=== PATIENT | female | born 1955 | race Caucasian/White ===

== ENCOUNTER → 2020-08-22 15:10 | Outpatient (CLI) | payer MEDICARE, SELFPAY ==
--- NOTE | 2020-08-22 15:12 | MM_ITS ---
PROCEDURE: MM DIG SCREENING MAMM BI W/CAD Digital Breast Tomosynthesis Included CLINICAL INDICATION: SCREENING There is a history of breast cancer patient's mother. There has been a previous biopsy left breast for benign disease. COMPARISON: Previous mammograms more than 10 years ago and not available for review TECHNIQUE: Standard CC and MLO images and 3D Tomosynthesis was obtained. R2 CAD reviewed. FINDINGS: Mild to moderate fibroglandular densities are seen in the central portions of both breasts. There is a biopsy clip left breast there are 2 benign-appearing nodular densities right breast with benign features but since there are no previous studies for comparison recommend the patient return for ultrasound examination of the areas marked on the image. There are no suspicious microcalcifications. IMPRESSION: Fibrofatty parenchyma with benign-appearing nodular densities right breast BI-RAD Category: 0 Need Additional Imaging Evaluation FOLLOW-UP: IMM Immediate Follow-up Recommended (A letter has been sent to the patient regarding results of the study.) Dictated by: Dr. Luke Hutchinson MD 08/26/2020 12:08 Dr. Luke Hutchinson MD in [place] 08/26/2020 12:08
== END ==
PROVIDERS: PCP Family Medicine; Visit Provider Family Medicine
DX: Z12.31 Encounter for screening mammogram for malignant neoplasm of breast (principal)
CPT/HCPCS: 77063; 77067

== ENCOUNTER → 2020-09-02 10:36 | Outpatient (CLI) | payer MEDICARE, SELFPAY ==
--- NOTE | 2020-09-02 10:40 | US_ITS ---
PROCEDURE: US BREAST LT COMPLETE CLINICAL INDICATION: ABN MAMM COMPARISON: MG MM DIG SCREENING MAMM BI W/CAD from 08/22/2020 FINDINGS: At 12 o'clock near the nipple there is a common shaped mm hypoechoic area which may be due to small cyst. At 1 o'clock there is a four mm cyst. At 9 o'clock there is a 4 mm cyst near the nipple and a 4 mm cyst out ir aspect. Small nodes are present in the axilla. IMPRESSION: Right breast cysts. These may correspond to the mammographic abnormalities. BI-RADS category 3 probably benign. Recommend right sided six-month and sonographic follow-up Dictated by: Arthur Beckman MD 09/19/2020 17:44 Arthur Beckman MD in [place] 09/19/2020 17:44
== END ==
PROVIDERS: PCP Family Medicine; Visit Provider Nurse Practitioner Family
DX: R92.8 Other abnormal and inconclusive findings on diagnostic imaging of breast (principal)
CPT/HCPCS: 76641

== ENCOUNTER → 2020-12-05 09:21 | Outpatient (CLI) | payer MEDICARE, SELFPAY ==
--- NOTE | 2020-12-05 09:27 | MR_ITS ---
PROCEDURE: MR SHOULDER RT WO CON CLINICAL INDICATION: CHRONIC OVERUSE OF RT SHOULDER WITH LIMITED ROM COMPARISON: No exams were available for comparison TECHNIQUE: Routine multiplanar multi echo sequences are performed without gadolinium enhancement. FINDINGS: Hypertrophic changes are present at the acromioclavicular joint. There is subacromial stenosis with the subacromial space measuring 5 mm. There is thickening of the supraspinatus tendon with focal increased T2 signal involving the supraspinatus tendon distally suggesting a partial tear. No evidence of complete or full-thickness tear. There is also tendinopathy/tendinosis of the infraspinatus tendon. There is impingement upon the supraspinatus and infraspinatus tendon from the acromioclavicular hypertrophy. The subscapularis tendon and teres minor tendons are unremarkable. The bicipital tendon is in place. No evidence of labral tear. Small amount fluid is present in the bicipital tendon sheath suggesting tenosynovitis. Osteoarthritic changes are present at the glenohumeral joint. There is a slightly high-riding humeral head. There is slight increased T2 signal involving the humeral head at the greater tuberosity suggesting some underlying bone marrow edema. IMPRESSION: Acromioclavicular arthropathy with subacromial stenosis with impingement upon the supraspinatus and infraspinatus tendons with tendinopathy/tendinosis and suspected partial tear of the distal aspect of the supraspinatus tendon. Osteoarthritic change of the acromioclavicular joint and glenohumeral joint Tenosynovitis of the bicipital tendon Dictated by: Arthur Beckman MD 12/06/2020 13:14 Arthur Beckman MD in [place] 12/06/2020 13:14
== END ==
PROVIDERS: PCP Family Medicine; Visit Provider Family Medicine
DX: M75.81 Other shoulder lesions, right shoulder (principal); M77.8 Other enthesopathies, not elsewhere classified
CPT/HCPCS: 73221

== ENCOUNTER → 2020-12-30 10:22 | Outpatient (CLI) | payer MEDICARE, SELFPAY ==
--- NOTE | 2020-12-30 10:26 | XR_ITS ---
PROCEDURE: XR SHOULDER RT MIN 2V CLINICAL INDICATION: RT shoulder Pain with limited range of motion COMPARISON: MR MR SHOULDER RT WO CON from 12/05/2020 FINDINGS: No fracture or dislocation. No lytic or blastic change. There is normal mineralization. Osteoarthritic changes are present at the glenohumeral joint with moderate to severe subacromial stenosis. There is a slightly high-riding humeral head. Other findings:None. IMPRESSION: Osteoarthritic change with subacromial stenosis Dictated by: Arthur Beckman MD 12/30/2020 12:07 Arthur Beckman MD in [place] 12/30/2020 12:07
== END ==
PROVIDERS: PCP Family Medicine; Visit Provider Orthopaedic Surgery
DX: M25.511 Pain in right shoulder (principal)
CPT/HCPCS: 73030

== ENCOUNTER → 2021-05-15 12:38 | Outpatient (CLI) | payer MEDICARE, SELFPAY ==
--- NOTE | 2021-05-15 12:47 | MM_ITS ---
PROCEDURE: MM DIG MAMM DX UNILAT RT CAD Digital Breast Tomosynthesis Included CLINICAL INDICATION: ABN MAMM Follow-up abnormal mammogram COMPARISON: MG MM DIG SCREENING MAMM BI W/CAD from 08/22/2020 US US BREAST LT COMPLETE from 09/02/2020 MR MR SHOULDER RT WO CON from 12/05/2020 TECHNIQUE: Standard images performed with spot compression views and 3D tomosynthesis. FINDINGS: Average fibroglandular tissue. No malignant appearing mass or malignant-appearing microcalcification. Previously noted nodular densities which were deemed to represent cysts on the previous study are once again noted and not significantly changed. A new area of asymmetry is present in the superior aspect of the right breast and there is a new nodular opacity in the medial aspect of the right breast seen on the tomogram images measuring 4 mm. Ultrasound of the right breast recommended. IMPRESSION: At least 2 new nodular opacities in the right breast. Recommend ultrasound for further evaluation. BI-RAD Category: 0 Need Additional Imaging Evaluation FOLLOW-UP: IMM Immediate Follow-up Recommended (A letter has been sent to the patient regarding results of the study.) Dictated by: Arthur Beckman MD 05/17/2021 10:18 Arthur Beckman MD in [place] 05/17/2021 10:18
== END ==
PROVIDERS: PCP Family Medicine; Visit Provider Family Medicine
DX: R92.8 Other abnormal and inconclusive findings on diagnostic imaging of breast (principal)
CPT/HCPCS: 77061; 77065; G0279

== ENCOUNTER → 2021-05-19 14:57 | Outpatient (CLI) | payer MEDICARE, SELFPAY ==
--- NOTE | 2021-05-19 15:02 | US_ITS ---
PROCEDURE: US BREAST RT COMPLETE CLINICAL INDICATION: R92.8 COMPARISON: US US BREAST LT COMPLETE from 09/02/2020 MG MM DIG MAMM DX UNILAT RT CAD from 05/15/2021 FINDINGS: Focal anechoic lesion is noted in the right breast at 9 o'clock position measuring approximately 0.4 centimeters. Second anechoic lesion noted is at 1 o'clock position, measuring 0.3 centimeters. No suspicious masses noted. Right axillary lymph node measuring up to 3 centimeters noted, demonstrate central fatty hilum and normal morphology. IMPRESSION: Findings are suggestive of cysts in the right breast. Probably benign finding. BI-RADS category 3, probably benign finding. Recommendation: Short-term follow-up in 6 months is recommended. Dictated by: Lupe Bryant 05/20/2021 12:56 Lupe Bryant in [place] 05/20/2021 12:56
== END ==
PROVIDERS: PCP Family Medicine; Visit Provider Family Medicine
DX: R92.8 Other abnormal and inconclusive findings on diagnostic imaging of breast (principal)
CPT/HCPCS: 76641

== ENCOUNTER → 2022-08-19 08:55 | Outpatient (CLI) | payer MEDICARE, SELFPAY ==
[2022-08-19 20:32] LABS: Alanine Aminotransferase 29 U/L (12-78); Albumin Level 4.2 g/dl (3.5-5.0); Albumin/Globulin Ratio 1.5 (1.1-1.8); Alkaline Phosphatase 87 U/L (38-126); Anion Gap 14.3 mEq/L (5-15); Aspartate Amino Transferase 32 U/L (14-36); Bilirubin,Total 0.5 mg/dl (0.2-1.3); Blood Urea Nitrogen 19 mg/dl (7-17); Calcium 9.2 mg/dl (8.4-10.2); Carbon Dioxide 28 mmol/L (22.0-30.0); Chloride 102 mmol/L (98-107); Chol/HDL Ratio 3.8 (1-3.5); Cholesterol 214 mg/dl (140-200); Estimated Glomerular Filt Rate 62 ml/min (>60); GFR (African American) 76 ML/MIN (>60); Globulin 2.8 g/dL (1.3-3.2); Glucose 111 mg/dl (74-100); HDL Cholesterol 56 mg/dl (40-60); Potassium 4.3 mmoL/L (3.5-5.1); Sodium 140 mmol/L (136-145); Triglycerides 64 mg/dl (30-150); VLDL Cholesterol 13 mg/dL (0-40)
[2022-08-19 20:41] LABS: Direct LDL Cholesterol 127.15 mg/dL (100-129)
[2022-08-19 20:43] LABS: Basophils # 0.1 K/mm3 (0-0.2); Basophils % 1.1 % (0.1-2.0); Eosinophils # 0.1 K/mm3 (0.0-0.4); Eosinophils % 1.4 % (0.1-12.0); Hemoglobin 14.3 g/dL (12.2-16.2); Lymphocytes # 1.6 K/mm3 (0.7-4.5); Lymphocytes % 27.5 % (10-50); Mean Corpuscular HGB Conc 31.9 g/dL (31.8-35.4); Mean Corpuscular Hemoglobin 30.6 pg (27.0-31.2); Mean Corpuscular Volume 95.8 fl (81-99); Monocytes # 0.3 K/mm3 (0.1-1.0); Monocytes % 5.7 % (1.7-9.3); Neutrophils # 3.8 K/mm3 (1.8-7.8); Neutrophils % 64.3 % (37.0-80.0); Platelet Count 256 K/mm3 (142-424); Red Blood Count 4.69 M/mm3 (4.20-5.40); Red Cell Distribution Width 14.3 % (11.5-17.5); White Blood Count 5.9 K/mm3 (4.8-10.8)
== END ==
PROVIDERS: PCP Family Medicine; Visit Provider Family Medicine
DX: K58.9 Irritable bowel syndrome, unspecified (principal); L03.211 Cellulitis of face; E78.5 Hyperlipidemia, unspecified
CPT/HCPCS: 80053; 80061; 85025

== ENCOUNTER → 2022-11-04 15:13 | Outpatient (CLI) | payer MEDICARE, SELFPAY ==
--- NOTE | 2022-11-04 15:13 | MM_ITS ---
PROCEDURE INFORMATION: Exam: MG Bilateral Screening 3D Mammography Exam date and time: 11/04/2022 3:12 PM Age: 67 years old Clinical indication: Screening mammogram. TECHNIQUE: Imaging protocol: Bilateral Screening tomosynthesis and 2D mammography including computer-aided detection (CAD) when performed. COMPARISON: 1. MG MM DIG MAMM DX UNILAT RT CAD 05/15/2021 1:41 PM 2. MG MM DIG SCREENING MAMM BI W/CAD 08/22/2020 3:16 PM 3. US BREAST RT COMPLETE 05/19/2021 3:17 PM 4. US BREAST LT COMPLETE 09/02/2020 11:28 AM FINDINGS: MAMMOGRAPHY: Breast composition: There are scattered areas of fibroglandular density. Mass: 0.8 cm mass within the upper outer posterior right breast (about 7 cm from the nipple) should be further assessed ultrasound. Architectural distortion: No new or suspicious architectural distortion. Calcifications: No new or suspicious calcifications are present Asymmetric density: No new or suspicious asymmetric density is present Skin thickening: None. Axillary adenopathy: None. IMPRESSION: 0.8 cm mass within the upper outer posterior right breast (about 7 cm from the nipple) should be further assessed ultrasound. ASSESSMENT: BI-RADS category 0: Incomplete-need additional imaging evaluation
== END ==
PROVIDERS: PCP Family Medicine; Visit Provider Family Medicine
DX: Z12.31 Encounter for screening mammogram for malignant neoplasm of breast (principal)
CPT/HCPCS: 77063; 77067

== ENCOUNTER → 2022-12-15 09:42 | Outpatient (CLI) | payer MEDICARE, SELFPAY ==
--- NOTE | 2022-12-15 09:43 | US_ITS ---
PROCEDURE INFORMATION: Exam: US Right Breast, Complete Exam date and time: 12/15/2022 10:08 AM Age: 67 years old Clinical indication: Patient recalled for further evaluation of a right breast mass TECHNIQUE: Imaging protocol: Complete ultrasound of all four quadrants of the Right breast and the retroareolar regions, including ultrasound of the axilla when performed. COMPARISON: US BREAST RT COMPLETE 05/19/2021 3:17 PM FINDINGS: Breast: Sonographic images of the right 9 o'clock axis for cm from the nipple demonstrates a 0.7 cm cyst likely correlating to the mass on mammography. The distance from the nipple appears somewhat shorter on sonography. Additional few subcentimeter scattered cysts are noted in the right breast. No solid masses. No architectural distortion or acoustical shadowing. Please note there several sonographic images labeled left breast 1 o'clock axis. Please disregard. The images were obtained in the right breast. IMPRESSION: Mass on screening mammography likely corresponds to underlying cystic change sonographically. A precautionary six-month follow-up diagnostic right mammogram and targeted right breast ultrasound are recommended to ensure stability over time. ASSESSMENT: BI-RADS Category 3: Probably benign
== END ==
PROVIDERS: PCP Family Medicine; Visit Provider Nurse Practitioner
DX: R92.8 Other abnormal and inconclusive findings on diagnostic imaging of breast (principal)
CPT/HCPCS: 76641